=== PATIENT | female | born 1940 | race Caucasian/White ===

== ENCOUNTER → 2017-08-06 | Outpatient (CLI) | payer MEDICARE ==
[2017-08-06] MEDS: REGADENOSON 0.4 MG/5 ML DISP.SYRIN. IV (11:32)
== END | disposition home or self-care (01) ==
LOC: NM 08:26
DX: I10 Essential (primary) hypertension (principal); I51.7 Cardiomegaly; F17.200 Nicotine dependence, unspecified, uncomplicated; R06.09 Other forms of dyspnea
CPT/HCPCS: 78452; 93017; 93306; 96374; 96375; 96376; A9500; J2785